=== PATIENT | female | born 1980 | race African-American/Black ===

== ENCOUNTER 2017-03-12 17:55 | Emergency (ER) | payer MEDICAID ==
[~2017-03-12] VITALS: Ht 180.3 cm; Wt 105.2 kg
[2017-03-12 18:00] VITALS: Ht 180.3 cm; Wt 105.2 kg
[2017-03-12 19:39] LABS: BASOPHIL % 0.2 % (0-2); PLATELET COUNT 215 x10^3mcL (130-400); RED CELL DISTRIBUTION WIDTH 12.9 % (11.5-14.5)
[2017-03-12 19:44] LABS: CALCIUM 8.9 mg/dL (8.5-10.1); CARBON DIOXIDE 27.4 mmol/L (21-32); CHLORIDE SERUM 98 mmol/L (98-107); GFR1 > 60 mL/min; GLUCOSE SERUM 345 mg/dL (74-106); POTASSIUM SERUM 4.3 mmol/L (3.5-5.1); SODIUM SERUM 133 mmol/L (136-145)
[2017-03-12 19:48] LABS: ALKALINE PHOSPHATASE 161 U/L (46-116); ALT/SGPT 21 U/L (14-59); AST/SGOT 11 U/L (15-37); BILIRUBIN TOTAL 0.33 mg/dL (0.20-1.00); HDL CHOLESTEROL 39 mg/dL (40-60); LIPASE 174 IU/L (73-393); TOTAL PROTEIN, SERUM 7.5 g/dL (6.4-8.2); TRIGLYCERIDES 95 mg/dL (<150)
[2017-03-12 19:55] LABS: CHOLESTEROL 95 mg/dL (<200); CHOLESTEROL/HDL RATIO 2.4
[2017-03-12 20:07] LABS: T3 TOTAL 0.92 ng/mL
[2017-03-12 20:19] LABS: FREE T4 1.18 ng/dL (0.76-1.46); FREE THYROXINE INDEX 2.3 ug/dL (1.4-4.5); T4(THYROXINE) 6.3 ug/dL (4.7-13.3)
[2017-03-12 23:57] VITALS: BP 136/72
== END 2017-03-12 23:57 | disposition home or self-care (01) ==
LOC: ED 17:55
PROVIDERS: Specialist
DX: L03.115 Cellulitis of right lower limb (principal); I10 Essential (primary) hypertension; E11.9 Type 2 diabetes mellitus without complications
CPT/HCPCS: 82962; 83880; 84439; J0696; J1170; J1885; J2405; J3010; J3490; J7030; Q0092

== ENCOUNTER 2017-03-14 11:08 | Emergency (ER) | payer MEDICAID ==
[~2017-03-14] VITALS: Ht 180.3 cm; Wt 104.3 kg
[2017-03-14 11:12] VITALS: Ht 180.3 cm; Wt 104.3 kg
[2017-03-14 12:05] VITALS: BP 158/85
== END 2017-03-14 12:05 | disposition home or self-care (01) ==
LOC: ED 11:08
DX: L03.115 Cellulitis of right lower limb (principal); E11.9 Type 2 diabetes mellitus without complications; I10 Essential (primary) hypertension

== ENCOUNTER 2017-03-17 14:23 | Inpatient (IN) | payer MEDICAID ==
[~2017-03-17] VITALS: Ht 180.3 cm; Wt 104.8 kg
[2017-03-17 17:02] LABS: BASOPHIL % 1.4 % (0-2); PLATELET COUNT 277 x10^3mcL (130-400); RED CELL DISTRIBUTION WIDTH 12.1 % (11.5-14.5)
[2017-03-17 17:47] LABS: CHOLESTEROL/HDL RATIO 2.4; MAGNESIUM 1.8 mg/dL (1.8-2.4); PHOSPHOROUS 3.7 mg/dL (2.5-4.9)
[2017-03-17 18:28] LABS: FREE T4 1.09 ng/dL (0.76-1.46)
[2017-03-17 18:59] VITALS: BP 140/82
[2017-03-17 19:05] VITALS: Ht 180.3 cm; Wt 104.8 kg
[2017-03-17 19:29] LABS: microscopic required? YES; urine erythrocyte TRACE (NEGATIVE)
[2017-03-17 21:09] VITALS: BP 122/69
[2017-03-17 21:50] LABS: AMPHETAMINE QUAL UR NONE DETECTED (NEG <=1000)
[2017-03-18 05:50] VITALS: BP 145/82
[2017-03-18 06:32] LABS: BASOPHIL % 0.4 % (0-2); PLATELET COUNT 237 x10^3mcL (130-400); RED CELL DISTRIBUTION WIDTH 13.1 % (11.5-14.5)
[2017-03-18 06:44] LABS: CALCIUM 8.6 mg/dL (8.5-10.1); CARBON DIOXIDE 28.4 mmol/L (21-32); CHLORIDE SERUM 103 mmol/L (98-107); CREATININE SERUM 0.8 mg/dL (0.6-1.0); GFR1 > 60 mL/min; GLUCOSE SERUM 213 mg/dL (74-106); MAGNESIUM 1.7 mg/dL (1.8-2.4); POTASSIUM SERUM 4.6 mmol/L (3.5-5.1); SODIUM SERUM 138 mmol/L (136-145)
[2017-03-18 09:25] VITALS: BP 143/85
[2017-03-18 13:36] VITALS: BP 156/94
[2017-03-18 16:38] VITALS: BP 146/86
[2017-03-18 21:04] VITALS: BP 153/85
[2017-03-19 05:14] VITALS: BP 150/99
[2017-03-19 06:36] LABS: CALCIUM 8.9 mg/dL (8.5-10.1); CARBON DIOXIDE 28.9 mmol/L (21-32); CHLORIDE SERUM 103 mmol/L (98-107); GFR1 > 60 mL/min; GLUCOSE SERUM 224 mg/dL (74-106); MAGNESIUM 1.8 mg/dL (1.8-2.4); POTASSIUM SERUM 4.4 mmol/L (3.5-5.1); SODIUM SERUM 138 mmol/L (136-145)
[2017-03-19 06:50] LABS: BASOPHIL % 0.4 % (0-2); PLATELET COUNT 264 x10^3mcL (130-400); RED CELL DISTRIBUTION WIDTH 13.4 % (11.5-14.5)
[2017-03-19 10:37] VITALS: BP 159/94
[2017-03-19] MEDS ORDERED: BLOOD GLUCOSE1 EAC1 MC ×2 (10:45→15:39)
[2017-03-19] MEDS ORDERED: BLOOD GLUCOSE1 EAC3 MC ×2 (10:46→15:39)
[2017-03-19] MEDS ORDERED: LANCET DEVICE1 EACH MC ×2 (10:46→15:39)
[2017-03-19] MEDS ORDERED: LISINOPRIL10 MG PO ×2 (10:52→15:39)
[2017-03-19] MEDS ORDERED: GLU5 PO ×2 (10:53→15:39)
[2017-03-19] MEDS ORDERED: GLU500 PO ×2 (10:53→15:39)
[2017-03-19 14:31] VITALS: BP 144/97
[2017-03-19 15:01] VITALS: BP 144/97
== END 2017-03-19 16:01 | disposition home or self-care (01) | DRG 342 ==
LOC: ED 14:23 → DU 17:07 → EDBEDREQ 17:08 → DU 18:40
PROVIDERS: Emergency Medicine; Family Medicine
DX: S92.251A Displaced fracture of navicular [scaphoid] of right foot, initial encounter for closed fracture (principal); N17.0 Acute kidney failure with tubular necrosis; E11.51 Type 2 diabetes mellitus with diabetic peripheral angiopathy without gangrene; E44.0 Moderate protein-calorie malnutrition; D68.69 Other thrombophilia; E11.59 Type 2 diabetes mellitus with other circulatory complications; S92.241A Displaced fracture of medial cuneiform of right foot, initial encounter for closed fracture; E11.65 Type 2 diabetes mellitus with hyperglycemia; E83.42 Hypomagnesemia; I10 Essential (primary) hypertension; F12.10 Cannabis abuse, uncomplicated; Z68.32 Body mass index [BMI] 32.0-32.9, adult; Z87.891 Personal history of nicotine dependence; D64.9 Anemia, unspecified; W22.03XA Walked into furniture, initial encounter; Y92.003 Bedroom of unspecified non-institutional (private) residence as the place of occurrence of the external cause
CPT/HCPCS: 82962; 83880; 84439; 97530-GP; J1170; J1644; J1815; J1885; J1956; J2543; J3475; J3490; J7030; Q0092

== ENCOUNTER 2019-02-22 00:52 | Emergency (ER) | payer SELFPAY ==
[~2019-02-22] VITALS: Ht 180.3 cm; Wt 106.6 kg
[~2019-02-22 00:52] MED LIST: BLOOD GLUCOSE1 EAC1 MC; BLOOD GLUCOSE1 EAC3 MC; GLU5 PO; GLU500 PO; LANCET DEVICE1 EACH MC; LISINOPRIL10 MG PO
[2019-02-22 01:05] VITALS: Ht 180.3 cm; Wt 106.6 kg
[2019-02-22 02:32] VITALS: BP 161/105
== END 2019-02-22 02:32 | disposition home or self-care (01) ==
LOC: ED 00:52
DX: H10.32 Unspecified acute conjunctivitis, left eye (principal); I10 Essential (primary) hypertension; E11.9 Type 2 diabetes mellitus without complications
CPT/HCPCS: J1885